=== PATIENT | female | born 1965 | race Caucasian/White ===

== ENCOUNTER 2016-08-09 13:04 | Emergency (ER) | payer MEDICAID, OTHER ==
[~2016-08-09] VITALS: Ht 157.5 cm; Wt 100.0 kg
[~2016-08-09 13:04] MED LIST: AMLO-511 PO; PARO20TA24 PO; QUET200T PO
[2016-08-09 13:07] VITALS: BP 186/121
[2016-08-09] MEDS ORDERED: HydrOXYzine PAMOATE 50 MG CAPSULE PO ONE (15:00)
== END 2016-08-09 15:14 | disposition home or self-care (01) ==
LOC: EMS 13:06
DX: F29 Unspecified psychosis not due to a substance or known physiological condition (principal); I10 Essential (primary) hypertension; F19.90 Other psychoactive substance use, unspecified, uncomplicated; F31.9 Bipolar disorder, unspecified; F17.210 Nicotine dependence, cigarettes, uncomplicated; Z88.8 Allergy status to other drugs, medicaments and biological substances; Z86.73 Personal history of transient ischemic attack (TIA), and cerebral infarction without residual deficits
CPT/HCPCS: 99281; 99284

== ENCOUNTER 2016-10-10 22:18 | Inpatient (IN) | payer MEDICAID, OTHER ==
[~2016-10-10] VITALS: Ht 157.5 cm; Wt 93.4 kg
[2016-10-10 22:54] LABS: BASOPHILS % (AUTO) 0.9 % (0.0-2.0); EOSINOPHILS % (AUTO) 2.1 % (1.0-6.0); HEMOGLOBIN 13.8 g/dL (12.0-16.0); LYMPHOCYTES # (AUTO) 1.9 K/uL (1.0-4.8); LYMPHOCYTES % (AUTO) 37.6 % (22.0-44.0); MEAN CORPUSCULAR HGB CONC 32.8 G/dL (31.0-37.0); MEAN CORPUSCULAR VOLUME 94 fL (80-100); MONOCYTES # (AUTO) 0.5 K/uL (0.1-1.0); MONOCYTES % (AUTO) 9.7 % (2.0-9.0); NEUTROPHILS # (AUTO) 2.5 K/uL (1.8-7.7); NEUTROPHILS % (AUTO) 49.7 % (40.0-70.0); PLATELET COUNT (AUTO) 229 K/uL (150-450); RED BLOOD CELL COUNT(AUTO) 4.44 MIL/uL (4.00-5.20); RED CELL DISTRIBUTION WIDTH 13.3 % (11.5-14.5); WHITE BLOOD COUNT (AUTO) 5.1 K/uL (4.5-11.0)
[2016-10-10 22:58] LABS: ANION GAP 14 mmol/L (8-16); CALCIUM, TOTAL 8.1 mg/dL (8.8-10.5); CARBON DIOXIDE 22 mmol/L (22-29); CHLORIDE 108 mmol/L (98-107); GLOMERULAR FILTR. RATE CALC > 60 mL/min (>60); POTASSIUM 3.6 mmol/L (3.5-5.1); SODIUM SERUM 144 mmol/L (136-145); UREA NITROGEN, BLOOD 10 mg/dL (7-18)
[2016-10-10 23:03] LABS: ALANINE AMINOTRANSFERASE 32 U/L (12-78); ALBUMIN 3.8 g/dL (3.4-5.0); ASPARTATE AMINOTRANSFERASE 18 U/L (15-37); BILIRUBIN,TOTAL 0.2 mg/dL (0.1-1.0); TOTAL PROTEIN, SERUM 7.2 g/dL (6.4-8.2)
[2016-10-10] MEDS ORDERED: PROPARACAINE HCL 0.5% 15 ML OPHTHALMIC SOLUTION OU ONE (23:15)
[2016-10-11] VITALS (10 sets, daily range): BP systolic 140–156; BP diastolic 73–92
[2016-10-11] MEDS ORDERED: DiphenhydrAMINE HCL 50 MG/ML VIAL IM ONE (00:15)
[2016-10-11] MEDS ORDERED: HALOPERIDOL LACTATE 5 MG/ML VIAL IM ONE (00:15)
[2016-10-11] MEDS ORDERED: LORazepam 2 MG/ML VIAL IM ONE (00:15)
[2016-10-11] MEDS ORDERED: LOPERAMIDE HCL 2 MG CAPSULE PO PRN (00:45)
[2016-10-11] MEDS ORDERED: ZOLPIDEM TARTRATE 10 MG TABLET PO PRN (00:45)
[2016-10-11] MEDS ORDERED: HydrOXYzine PAMOATE 50 MG CAPSULE PO PRN (00:45)
[2016-10-11] MEDS ORDERED: LORazepam 2 MG TABLET PO PRN (00:45)
[2016-10-11] MEDS ORDERED: GuaiFENesin/D-METHORPHAN [SUGAR-FREE] 200-20MG/10 ML SYRUP UDCUP PO PRN (00:45)
[2016-10-11] MEDS ORDERED: HALOPERIDOL 5 MG TABLET PO PRN (00:45)
[2016-10-11] MEDS ORDERED: NEOMYCIN/POLYMYXIN B/DEXAMETH 3.5 GM OPHTHALMIC OINTMENT OU ONE (02:00)
[2016-10-11 05:36] LABS: GLUCOSE,POINT OF CARE 85 MG/DL (70-110)
[2016-10-11] MEDS ORDERED: -PHARMACY VACCINE NOTE- MISC ONE ×2 (06:30)
[2016-10-11] MEDS: FOLIC ACID 1 MG TABLET PO SCH (08:42)
[2016-10-11] MEDS: LORazepam 2 MG TABLET PO PRN ×2 (08:42→16:15)
[2016-10-11] MEDS: THIAMINE HCL 100 MG TABLET PO SCH ×2 (08:42→16:15)
[2016-10-11] MEDS: MULTIVITAMINS WITH MINERALS, THERAPEUTIC TABLET PO SCH (08:42)
[2016-10-11] MEDS: NEOMYCIN/POLYMYXIN B/DEXAMETH 3.5 GM OPHTHALMIC OINTMENT OU SCH ×4 (08:43→20:23)
[2016-10-11] MEDS ORDERED: CYANOCOBALAMIN 1,000 MCG/ML VIAL IM ONE (09:00)
[2016-10-11 09:02] LABS: CHOL/HDL RATIO 3.2 (3.9-5.7)
[2016-10-11] MEDS ORDERED: ACETAMINOPHEN 325 MG TABLET PO PRN (15:00)
[2016-10-11] MEDS ORDERED: CloNIDine HCL 0.1 MG TABLET PO PRN (15:00)
[2016-10-11] MEDS: AmLODIPine BESYLATE 5 MG TABLET PO SCH (20:23)
[2016-10-12 03:34] VITALS: BP 140/78
[2016-10-12 06:14] VITALS: BP 139/76
[2016-10-12] MEDS ORDERED: LORazepam 2 MG TABLET PO PRN (07:00)
[2016-10-12 08:16] LABS: HEMOGLOBIN A1C 5.7 % (4.5-6.2)
[2016-10-12 08:18] VITALS: BP 118/72
[2016-10-12] MEDS: NEOMYCIN/POLYMYXIN B/DEXAMETH 3.5 GM OPHTHALMIC OINTMENT OU SCH ×4 (09:07→20:18)
[2016-10-12] MEDS: THIAMINE HCL 100 MG TABLET PO SCH ×2 (09:07→17:08)
[2016-10-12] MEDS: MULTIVITAMINS WITH MINERALS, THERAPEUTIC TABLET PO SCH (09:07)
[2016-10-12] MEDS: FOLIC ACID 1 MG TABLET PO SCH (09:07)
[2016-10-12] MEDS: LORazepam 2 MG TABLET PO SCH ×4 (09:08→20:18)
[2016-10-12] MEDS: IBUPROFEN 400 MG TABLET PO PRN (09:22)
[2016-10-12 13:05] LABS: CHOL/HDL RATIO 3.3 (3.9-5.7); THYROID STIMULATING HORMONE 2.93 uIU/mL (0.36-3.74)
[2016-10-12 16:00] VITALS: BP 120/68
[2016-10-12 20:15] VITALS: BP 124/72
[2016-10-12] MEDS: AmLODIPine BESYLATE 5 MG TABLET PO SCH (20:18)
[2016-10-13] MEDS: IBUPROFEN 400 MG TABLET PO PRN (03:59)
[2016-10-13 04:30] VITALS: BP 135/90
[2016-10-13] MEDS: LORazepam 2 MG TABLET PO PRN (06:18)
[2016-10-13 07:14] VITALS: BP 145/90
[2016-10-13 08:24] VITALS: BP 131/82
[2016-10-13] MEDS: NEOMYCIN/POLYMYXIN B/DEXAMETH 3.5 GM OPHTHALMIC OINTMENT OU SCH ×4 (08:46→20:40)
[2016-10-13] MEDS: LORazepam 2 MG TABLET PO SCH ×4 (08:46→20:33)
[2016-10-13] MEDS: MULTIVITAMINS WITH MINERALS, THERAPEUTIC TABLET PO SCH (08:46)
[2016-10-13] MEDS: FOLIC ACID 1 MG TABLET PO SCH (08:46)
[2016-10-13] MEDS: THIAMINE HCL 100 MG TABLET PO SCH ×2 (08:46→16:24)
[2016-10-13 16:00] VITALS: BP 140/82
[2016-10-13 21:00] VITALS: BP 136/86
[2016-10-13] MEDS ORDERED: QUEtiapine FUMARATE 200 MG TABLET PO SCH (21:00)
[2016-10-13] MEDS ORDERED: TraZODone HCL 50 MG TABLET PO SCH (21:00)
[2016-10-13] MEDS ORDERED: PARoxetine HCL 20 MG TABLET PO SCH (21:00)
[2016-10-13] MEDS: AmLODIPine BESYLATE 5 MG TABLET PO SCH (21:04)
[2016-10-14 05:20] VITALS: BP 148/94
[2016-10-14] MEDS: IBUPROFEN 400 MG TABLET PO PRN (05:24)
[2016-10-14] MEDS ORDERED: LORazepam 1 MG TABLET PO PRN (07:00)
[2016-10-14 08:00] VITALS: BP 128/80
[2016-10-14 08:28] VITALS: BP 128/80
[2016-10-14] MEDS: THIAMINE HCL 100 MG TABLET PO SCH (08:49)
[2016-10-14] MEDS: FOLIC ACID 1 MG TABLET PO SCH (08:49)
[2016-10-14] MEDS: MULTIVITAMINS WITH MINERALS, THERAPEUTIC TABLET PO SCH (08:49)
[2016-10-14] MEDS: NEOMYCIN/POLYMYXIN B/DEXAMETH 3.5 GM OPHTHALMIC OINTMENT OU SCH ×2 (08:49→12:21)
[2016-10-14] MEDS: LORazepam 1 MG TABLET PO SCH ×2 (08:49→12:21)
[2016-10-14] MEDS ORDERED: AMLO-511 PO (11:15)
[2016-10-14] MEDS ORDERED: TRAZ-144 PO (11:16)
[2016-10-15] MEDS ORDERED: LORazepam 1 MG TABLET PO PRN (07:00)
== END 2016-10-14 13:00 | disposition home or self-care (01) | DRG 750 ==
LOC: EMS 22:22 → B3A 10-11 01:01
PROVIDERS: ADMIT Psychiatry & Neurology Psychiatry; ATTEND Psychiatry & Neurology Psychiatry
DX: F25.9 Schizoaffective disorder, unspecified (principal); I10 Essential (primary) hypertension; H10.213 Acute toxic conjunctivitis, bilateral; F17.200 Nicotine dependence, unspecified, uncomplicated; F10.129 Alcohol abuse with intoxication, unspecified; Y90.8 Blood alcohol level of 240 mg/100 ml or more; F15.90 Other stimulant use, unspecified, uncomplicated
CPT/HCPCS: 82962; 83036; 84443; 96372; 99285; G0480; J1200; J1630; J2060; J3420

== ENCOUNTER 2018-10-27 19:59 | Inpatient (IN) | payer MEDICAID, OTHER ==
[~2018-10-27] VITALS: Ht 154.9 cm; Wt 96.0 kg
[~2018-10-27 19:59] MED LIST changes: +TRAZ-252 PO
[2018-10-27] MEDS ORDERED: DIPH25 PO (21:11)
[2018-10-27] MEDS ORDERED: DIVA-78 PO (21:11)
[2018-10-27] MEDS ORDERED: LORazepam 2 MG/ML VIAL IM ONE (21:30)
[2018-10-27 21:56] LABS: BASOPHILS % (AUTO) 1.4 % (0.0-2.0); EOSINOPHILS % (AUTO) 2.8 % (1.0-6.0); HEMATOCRIT 38.4 % (36-46); HEMOGLOBIN 13.3 g/dL (12.0-16.0); LYMPHOCYTES # (AUTO) 1.8 K/uL (1.0-4.8); LYMPHOCYTES % (AUTO) 34.6 % (22.0-44.0); MEAN CORPUSCULAR HGB CONC 34.8 G/dL (31.0-37.0); MEAN CORPUSCULAR VOLUME 92 fL (80-100); MONOCYTES # (AUTO) 0.4 K/uL (0.1-1.0); MONOCYTES % (AUTO) 7.3 % (2.0-9.0); NEUTROPHILS # (AUTO) 2.8 K/uL (1.8-7.7); NEUTROPHILS % (AUTO) 53.9 % (40.0-70.0); PLATELET COUNT (AUTO) 259 K/uL (150-450); RED BLOOD CELL COUNT(AUTO) 4.17 MIL/uL (4.00-5.20); RED CELL DISTRIBUTION WIDTH 13.1 % (11.5-14.5)
[2018-10-27 22:06] LABS: ANION GAP 9 mmol/L (8-16); CALCIUM, TOTAL 8.6 mg/dL (8.8-10.5); CARBON DIOXIDE 24 mmol/L (22-29); CHLORIDE 108 mmol/L (98-107); CREATININE 0.55 mg/dL (0.60-1.30); GLOMERULAR FILTR. RATE CALC > 60 mL/min (>60); GLUCOSE,RANDOM 114 mg/dL (70-110); POTASSIUM 3.3 mmol/L (3.5-5.1); SODIUM SERUM 141 mmol/L (136-145); UREA NITROGEN, BLOOD 8 mg/dL (7-18)
[2018-10-27 22:13] LABS: ALANINE AMINOTRANSFERASE 27 U/L (12-78); ALBUMIN 3.3 g/dL (3.4-5.0); ALKALINE PHOSPHATASE 92 U/L (46-116); ASPARTATE AMINOTRANSFERASE 12 U/L (15-37); BILIRUBIN,TOTAL 0.1 mg/dL (0.1-1.0); TOTAL PROTEIN, SERUM 6.8 g/dL (6.4-8.2)
[2018-10-28] VITALS (8 sets, daily range): BP systolic 134–168; BP diastolic 76–95
[2018-10-28] MEDS ORDERED: POTASSIUM CHLORIDE 20 MEQ ER TABLET PO ONE ×2 (02:30→13:45)
[2018-10-28] MEDS ORDERED: QUEtiapine FUMARATE 100 MG TABLET PO PRN ×2 (03:30→13:00)
[2018-10-28] MEDS ORDERED: LORazepam 2 MG TABLET PO PRN (03:30)
[2018-10-28] MEDS ORDERED: ZOLPIDEM TARTRATE 10 MG TABLET PO PRN (03:30)
[2018-10-28 04:44] LABS: APPEARANCE,URINE CLEAR (CLEAR); BILIRUBIN,URINE NEGATIVE (NEGATIVE); GLUCOSE, URINE (UA) NEGATIVE (NEGATIVE); KETONES,URINE NEGATIVE (NEGATIVE); LEUKOCYTE ESTERASE ,URINE NEGATIVE (NEGATIVE); NITRATE,URINE NEGATIVE (NEGATIVE); OCCULT BLOOD,URINE NEGATIVE (NEGATIVE); PH,URINE 7.5 (5.0-8.0); PROTEIN,URINE NEGATIVE (NEGATIVE); UROBILINOGEN,URINE 0.2 mg/dL (<=1.0)
[2018-10-28 04:50] LABS: AMPHET/METH SCREEN,URINE POSITIVE (NEGATIVE); BARBITURATE SCREEN, URINE NEGATIVE (NEGATIVE); BENZODIAZEPINES SCREEN,URINE NEGATIVE (NEGATIVE); CANNABINOID SCREEN,URINE NEGATIVE (NEGATIVE); COCAINE SCREEN,URINE NEGATIVE (NEGATIVE); METHADONE SCREEN, URINE NEGATIVE (NEGATIVE); OPIATE SCREEN,URINE NEGATIVE (NEGATIVE)
[2018-10-28 04:54] LABS: PHENCYCLIDINE SCREEN,URINE NEGATIVE (NEGATIVE)
[2018-10-28] MEDS: LORazepam 2 MG TABLET PO PRN ×2 (05:21→13:40)
[2018-10-28] MEDS: CloNIDine HCL 0.1 MG TABLET PO PRN (11:15)
[2018-10-28] MEDS ORDERED: HydrOXYzine PAMOATE 50 MG CAPSULE PO PRN (13:00)
[2018-10-28] MEDS ORDERED: MAGNESIUM HYDROXIDE SUSPENSION 30 ML UDCUP PO PRN (13:00)
[2018-10-28] MEDS ORDERED: LOPERAMIDE HCL 2 MG CAPSULE PO PRN ×2 (13:00)
[2018-10-28] MEDS ORDERED: TUBERCULIN, PURIFIED PROTEIN DERIVATIVE 5 TU/0.1 ML SYRINGE ID ONE (13:00)
[2018-10-28] MEDS ORDERED: PROMETHAZINE HCL 25 MG TABLET PO PRN (13:00)
[2018-10-28] MEDS ORDERED: MAG HYDROX/AL HYDROX/SIMETH ES 30 ML SUSPENSION UDCUP PO PRN (13:00)
[2018-10-28] MEDS ORDERED: DIAZEPAM 10 MG TABLET PO PRN (13:00)
[2018-10-28] MEDS ORDERED: GuaiFENesin/D-METHORPHAN [SUGAR-FREE] 200-20MG/10 ML SYRUP UDCUP PO PRN (13:00)
[2018-10-28] MEDS ORDERED: CYANOCOBALAMIN 1,000 MCG/ML VIAL IM ONE (13:00)
[2018-10-28] MEDS ORDERED: DiphenhydrAMINE HCL 25 MG CAPSULE PO PRN (18:15)
[2018-10-28] MEDS: THIAMINE HCL 100 MG TABLET PO SCH (20:15)
[2018-10-28] MEDS: DIVALPROEX SODIUM 500 MG ER TABLET PO SCH (21:26)
[2018-10-28] MEDS: AmLODIPine BESYLATE 5 MG TABLET PO SCH (21:26)
[2018-10-28] MEDS: QUEtiapine FUMARATE 200 MG TABLET PO SCH (21:27)
[2018-10-29] VITALS (7 sets, daily range): BP systolic 130–156; BP diastolic 86–94
[2018-10-29] MEDS: ACETAMINOPHEN 325 MG TABLET PO PRN (03:12)
[2018-10-29] MEDS: LORazepam 2 MG TABLET PO PRN ×2 (03:12→09:09)
[2018-10-29 06:59] LABS: HEMOGLOBIN A1C 6.2 % (4.5-6.2)
[2018-10-29] MEDS ORDERED: LORazepam 2 MG TABLET PO PRN (07:00)
[2018-10-29] MEDS ORDERED: DIAZEPAM 10 MG TABLET PO PRN (07:00)
[2018-10-29 07:10] LABS: ALANINE AMINOTRANSFERASE 23 U/L (12-78); ALBUMIN 2.9 g/dL (3.4-5.0); ALKALINE PHOSPHATASE 84 U/L (46-116); ANION GAP 7 mmol/L (8-16); ASPARTATE AMINOTRANSFERASE 12 U/L (15-37); BILIRUBIN,TOTAL 0.2 mg/dL (0.1-1.0); CALCIUM, TOTAL 8.7 mg/dL (8.8-10.5); CARBON DIOXIDE 25 mmol/L (22-29); CHLORIDE 104 mmol/L (98-107); CHOL/HDL RATIO 4.1 (3.9-5.7); CHOLESTEROL 147 mg/dL (131-200); CREATININE 0.58 mg/dL (0.60-1.30); FREE T4 (FREE THYROXINE) 0.82 ng/dL (0.76-1.46); GLOMERULAR FILTR. RATE CALC > 60 mL/min (>60); GLUCOSE,RANDOM 130 mg/dL (70-110); HDL CHOLESTEROL 36 mg/dL (40-60); LDL CHOL (CALC.) 62 mg/dL (0-130); POTASSIUM 3.5 mmol/L (3.5-5.1); SODIUM SERUM 136 mmol/L (136-145); THYROID STIMULATING HORMONE 7.55 uIU/mL (0.36-3.74); TOTAL PROTEIN, SERUM 6.6 g/dL (6.4-8.2); TRIGLYCERIDES 243 mg/dL (15-150); UREA NITROGEN, BLOOD 16 mg/dL (7-18)
[2018-10-29] MEDS ORDERED: LORazepam 2 MG TABLET PO SCH (09:00)
[2018-10-29] MEDS: MULTIVITAMINS WITH MINERALS, THERAPEUTIC TABLET PO SCH (09:02)
[2018-10-29] MEDS: LISINOPRIL 10 MG TABLET PO SCH (09:02)
[2018-10-29] MEDS: NALTREXONE HCL 50 MG TABLET PO SCH (09:02)
[2018-10-29] MEDS: PARoxetine HCL 20 MG TABLET PO SCH (09:03)
[2018-10-29] MEDS: LORATADINE 10 MG TABLET PO SCH (09:03)
[2018-10-29] MEDS: THIAMINE HCL 100 MG TABLET PO SCH ×2 (09:03→16:30)
[2018-10-29] MEDS: FOLIC ACID 1 MG TABLET PO SCH (09:05)
[2018-10-29] MEDS: DIAZEPAM 10 MG TABLET PO SCH ×4 (09:06→20:56)
[2018-10-29] MEDS: NICOTINE 21 MG/24 HOUR PATCH TD SCH (09:07)
[2018-10-29] MEDS: DIVALPROEX SODIUM 500 MG ER TABLET PO SCH (20:56)
[2018-10-29] MEDS: QUEtiapine FUMARATE 200 MG TABLET PO SCH (20:56)
[2018-10-29] MEDS: AmLODIPine BESYLATE 5 MG TABLET PO SCH (20:56)
[2018-10-30] MEDS: LORazepam 2 MG TABLET PO PRN ×2 (02:35→11:35)
[2018-10-30 02:38] VITALS: BP 145/86
[2018-10-30] MEDS: ACETAMINOPHEN 325 MG TABLET PO PRN ×2 (02:38→14:48)
[2018-10-30 08:05] VITALS: BP 138/89
[2018-10-30] MEDS: DIAZEPAM 10 MG TABLET PO SCH ×4 (09:30→20:56)
[2018-10-30] MEDS: MULTIVITAMINS WITH MINERALS, THERAPEUTIC TABLET PO SCH (09:30)
[2018-10-30] MEDS: NICOTINE 21 MG/24 HOUR PATCH TD SCH (09:30)
[2018-10-30] MEDS: LISINOPRIL 10 MG TABLET PO SCH (09:30)
[2018-10-30] MEDS: PARoxetine HCL 20 MG TABLET PO SCH (09:30)
[2018-10-30] MEDS: LORATADINE 10 MG TABLET PO SCH (09:30)
[2018-10-30] MEDS: THIAMINE HCL 100 MG TABLET PO SCH ×2 (09:30→16:23)
[2018-10-30] MEDS: FOLIC ACID 1 MG TABLET PO SCH (09:30)
[2018-10-30] MEDS: NALTREXONE HCL 50 MG TABLET PO SCH (09:30)
[2018-10-30 14:48] VITALS: BP 136/84
[2018-10-30 17:03] VITALS: BP 151/99
[2018-10-30] MEDS: DIVALPROEX SODIUM 500 MG ER TABLET PO SCH (20:56)
[2018-10-30] MEDS: QUEtiapine FUMARATE 200 MG TABLET PO SCH (20:56)
[2018-10-30] MEDS: AmLODIPine BESYLATE 5 MG TABLET PO SCH (20:56)
[2018-10-31 01:20] VITALS: BP 142/83
[2018-10-31] MEDS: LORazepam 2 MG TABLET PO PRN (01:20)
[2018-10-31] MEDS: ACETAMINOPHEN 325 MG TABLET PO PRN ×2 (01:21→16:32)
[2018-10-31 01:35] VITALS: BP 142/83
[2018-10-31] MEDS: LEVOTHYROXINE SODIUM 25 MCG TABLET PO SCH (06:29)
[2018-10-31] MEDS ORDERED: LORazepam 1 MG TABLET PO PRN (07:00)
[2018-10-31] MEDS ORDERED: DIAZEPAM 5 MG TABLET PO PRN (07:00)
[2018-10-31] MEDS ORDERED: LORazepam 1 MG TABLET PO SCH (09:00)
[2018-10-31] MEDS: MULTIVITAMINS WITH MINERALS, THERAPEUTIC TABLET PO SCH (09:22)
[2018-10-31] MEDS: THIAMINE HCL 100 MG TABLET PO SCH ×2 (09:22→16:40)
[2018-10-31] MEDS: LISINOPRIL 10 MG TABLET PO SCH (09:23)
[2018-10-31] MEDS: NALTREXONE HCL 50 MG TABLET PO SCH (09:23)
[2018-10-31] MEDS: FOLIC ACID 1 MG TABLET PO SCH (09:23)
[2018-10-31] MEDS: PARoxetine HCL 20 MG TABLET PO SCH (09:23)
[2018-10-31] MEDS: DIAZEPAM 5 MG TABLET PO SCH ×4 (09:23→20:25)
[2018-10-31] MEDS: LORATADINE 10 MG TABLET PO SCH (09:23)
[2018-10-31] MEDS: NICOTINE 21 MG/24 HOUR PATCH TD SCH (09:24)
[2018-10-31 10:35] VITALS: BP 141/96
[2018-10-31 16:32] VITALS: BP 137/80
[2018-10-31] MEDS: DIVALPROEX SODIUM 500 MG ER TABLET PO SCH (20:22)
[2018-10-31] MEDS: AmLODIPine BESYLATE 5 MG TABLET PO SCH (20:23)
[2018-10-31] MEDS: QUEtiapine FUMARATE 200 MG TABLET PO SCH (20:23)
[2018-11-01 05:14] VITALS: BP 163/92
[2018-11-01] MEDS: CloNIDine HCL 0.1 MG TABLET PO PRN (05:19)
[2018-11-01] MEDS: ACETAMINOPHEN 325 MG TABLET PO PRN ×2 (05:19→12:45)
[2018-11-01 06:03] VITALS: BP 102/69
[2018-11-01] MEDS: LEVOTHYROXINE SODIUM 25 MCG TABLET PO SCH (06:09)
[2018-11-01 06:11] VITALS: BP 102/69
[2018-11-01] MEDS ORDERED: LORazepam 1 MG TABLET PO PRN (07:00)
[2018-11-01] MEDS ORDERED: DIAZEPAM 5 MG TABLET PO PRN (07:00)
[2018-11-01] MEDS: NALTREXONE HCL 50 MG TABLET PO SCH (08:35)
[2018-11-01] MEDS: LISINOPRIL 10 MG TABLET PO SCH (08:35)
[2018-11-01] MEDS: LORATADINE 10 MG TABLET PO SCH (08:35)
[2018-11-01] MEDS: THIAMINE HCL 100 MG TABLET PO SCH (08:35)
[2018-11-01] MEDS: MULTIVITAMINS WITH MINERALS, THERAPEUTIC TABLET PO SCH (08:36)
[2018-11-01] MEDS: FOLIC ACID 1 MG TABLET PO SCH (08:36)
[2018-11-01] MEDS: PARoxetine HCL 20 MG TABLET PO SCH (08:36)
[2018-11-01] MEDS: NICOTINE 21 MG/24 HOUR PATCH TD SCH (08:41)
[2018-11-01 09:34] VITALS: BP 132/68
[2018-11-01 09:35] VITALS: BP 132/68
[2018-11-01 12:46] VITALS: BP 129/67
[2018-11-01] MEDS ORDERED: LEVO25TA9 PO (13:22)
[2018-11-01] MEDS ORDERED: LISI-661 PO (13:23)
[2018-11-01] MEDS ORDERED: LORA10TA7 PO (13:23)
[2018-11-01] MEDS ORDERED: DIVA500T52 PO (13:31)
[2018-11-01] MEDS: LORazepam 2 MG TABLET PO PRN (14:41)
== END 2018-11-01 15:00 | disposition home or self-care (01) | DRG 750 ==
LOC: EMS 20:02 → AHU 10-28 10:42 → 3EI 10-28 12:01
PROVIDERS: ADMIT Psychiatry & Neurology Psychiatry; ATTEND Psychiatry & Neurology Psychiatry
DX: F25.0 Schizoaffective disorder, bipolar type (principal); R45.851 Suicidal ideations; E66.01 Morbid (severe) obesity due to excess calories; E11.9 Type 2 diabetes mellitus without complications; F17.210 Nicotine dependence, cigarettes, uncomplicated; Z86.73 Personal history of transient ischemic attack (TIA), and cerebral infarction without residual deficits; Z87.440 Personal history of urinary (tract) infections; F41.9 Anxiety disorder, unspecified; E87.6 Hypokalemia; F10.129 Alcohol abuse with intoxication, unspecified; Y90.6 Blood alcohol level of 120-199 mg/100 ml; F19.10 Other psychoactive substance abuse, uncomplicated; I10 Essential (primary) hypertension; Z68.41 Body mass index [BMI] 40.0-44.9, adult; Z91.19 Patient's noncompliance with other medical treatment and regimen; Z91.5 Personal history of self-harm; G51.0 Bell's palsy
CPT/HCPCS: 80074; 83036; 84439; 84443; 86592; 96372; G0480; J2060

== ENCOUNTER 2023-01-25 17:34 | Emergency (ER) | payer MEDICAID, OTHER ==
[~2023-01-25] VITALS: Ht 157.5 cm; Wt 102.3 kg
[~2023-01-25 17:34] MED LIST changes: +AMLO-257 PO; -AMLO-511 PO; +DIVA500T53 PO; +LEVO25TA9 PO; +LISI-893 PO; +LORA10TA7 PO; +PARO-38 PO; -PARO20TA24 PO; -TRAZ-252 PO
[2023-01-25 18:07] VITALS: TEMP 98.9
[2023-01-25 18:10] VITALS: BP 147/79; PULSE 88; RESP 18
[2023-01-25] MEDS ORDERED: CORTSUSP AD (19:05)
[2023-01-25] MEDS ORDERED: ACET-66 PO (19:05)
[2023-01-25] MEDS ORDERED: CEPH-558 PO (19:05)
== END 2023-01-25 19:59 | disposition home or self-care (01) ==
LOC: EMS 17:35
DX: H66.91 Otitis media, unspecified, right ear (principal); H60.91 Unspecified otitis externa, right ear; F41.9 Anxiety disorder, unspecified; F31.9 Bipolar disorder, unspecified; I10 Essential (primary) hypertension; F17.210 Nicotine dependence, cigarettes, uncomplicated; F15.90 Other stimulant use, unspecified, uncomplicated; F10.90 Alcohol use, unspecified, uncomplicated; G51.0 Bell's palsy; Z98.890 Other specified postprocedural states; Z88.8 Allergy status to other drugs, medicaments and biological substances
CPT/HCPCS: 99283; Z7502